=== PATIENT | male | born 1995 | race Caucasian/White ===

== ENCOUNTER 2019-04-25 02:39 | Emergency (ER) | payer SELFPAY ==
[~2019-04-25] VITALS: Ht 170.2 cm; Wt 72.6 kg
[2019-04-25 02:40] VITALS: BP 144/86
--- NOTE | 2019-04-25 02:45 | NUR ---
BIB [facility] FOR PREBOOK. PT WAS [employer]IST IN [employer] [place], [place], -[place]. PT STATES HIS LEFT SHOULDER FEELS BRUISED BUT NO PAIN. ROM IN TACT. A/O X 4. CMS IN TACT. NEURO IN TACT. PT AWAKE AND ALERT. + ETOH.
--- NOTE | 2019-04-25 03:00 | NUR ---
PT AMBULATED TO BED 7. [facility] X 2 AT BEDSIDE.
[2019-04-25] MEDS ORDERED: NACL 0.9% 1,000 ML IV ONE (04:10)
[2019-04-25 04:41] VITALS: BP 145/80
--- NOTE | 2019-04-25 04:41 | NUR ---
Patient discharged with v/s stable. Written and verbal after care instructions given and explained. Patient verbalized understanding. [facility] Police with in custody. All questions addressed prior to discharge. Advised to follow up with PMD.
== END 2019-04-25 04:41 ==
LOC: MED 02:39
DX: M25.512 Pain in left shoulder (principal); F10.929 Alcohol use, unspecified with intoxication, unspecified; Z88.1 Allergy status to other antibiotic agents; V89.2XXA Person injured in unspecified motor-vehicle accident, traffic, initial encounter; Y93.89 Activity, other specified; Y92.488 Other paved roadways as the place of occurrence of the external cause; Y99.8 Other external cause status; Y90.9 Presence of alcohol in blood, level not specified
CPT/HCPCS: 99283; J7030